=== PATIENT | male | born 1985 | race Caucasian/White ===

== ENCOUNTER 2024-02-04 08:18 | Emergency (ER) | payer BC ==
[2024-02-04] MEDS ORDERED: dexAMETHasone 10 MG/ML VIAL ONE (08:57)
[2024-02-04] MEDS ORDERED: SMZ./TMP. 800/160 MG TABLET ONE (08:57)
--- NOTE | 2024-02-04 09:11 | ER ---
Nurse's Notes [facility] Name: Daniele Jaimes Age: 38 yrs Sex: Male : 1985 Arrival Date: 02/04/2024 Time: 08:18 Bed 12 Private MD: Diagnosis: Insect bite;Facial cellulitis;Periorbital swelling Presentation: 02/03 08:41 Chief complaint: Patient states: left eyelid swelling and redness today. aa5 08:41 Coronavirus screen: At this time, the client does not indicate any symptoms associated aa5 with coronavirus-19. Ebola Screen: Patient denies travel to an Ebola-affected area in the 21 days before illness onset. Initial Sepsis Screen: Does the patient meet any 2 criteria? HR > 90 bpm. Does the patient have a suspected source of infection? No. Patient's initial sepsis screen is negative. Risk Assessment: Do you want to hurt yourself or someone else? Patient reports no desire to harm self or others. Onset of symptoms was February 04, 2024. 08:41 Method Of Arrival: Ambulatory aa5 08:41 Acuity: JOSELITO 4 aa5 Historical: - Allergies: 08:41 Aspirin; aa5 08:41 PENICILLINS; aa5 - PMHx: 08:41 None; aa5 - PSHx: 08:41 None; aa5 - Immunization history:: Adult Immunizations unknown. - Infectious Disease History:: Denies. - Social history:: Smoking status: Patient reports the use of cigarette tobacco products. Vital Signs: 08:41 BP 148 / 114; Pulse 100; Resp 20 S; Temp 97.8(TE); Pulse Ox 95% on R/A; Weight 127.01 aa5 kg (R); Height 5 ft. 11 in. (R); 09:05 BP 148 / 118; Pulse 103; Resp 18 S; Pulse Ox 95% on R/A; aa5 08:41 Body Mass Index 39.05 (127.01 kg, 180.34 cm) aa5 09:05 PARISH NURSE notified of persistent high blood pressure reading. aa5 ED Course: 08:21 Patient arrived in ED. im 08:24 Kyra Mclean FNP is PHCP. jh7 08:24 Riley Cosme DO is Attending Physician. jh7 08:41 Arm band placed on. aa5 08:43 Triage completed. aa5 08:51 Sophie Castro, RN is Primary Nurse. aa5 Administered Medications: 09:04 Drug: Trimethoprim-Sulfamethoxazole PO (160 mg-800 mg (DS) 1 tablet PO once Route: PO; aa5 09:05 Drug: Dexamethasone IM 10 mg IM once Route: IM; Site: left deltoid; aa5 Outcome: 09:10 Discharge ordered by . [facility] er 09:29 Patient left the ED. aa5 Signatures: Sophie Castro RN RN 5 Kyra Mclean, RUG BACKING STENCILER RUG BACKING STENCILER [facility] er Kristin Washington im
--- NOTE | 2024-02-04 09:11 | EDPHYS ---
Physician Documentation [facility] Name: Daniele Jaimes Age: 38 yrs Sex: Male : 1985 Arrival Date: 02/04/2024 Time: 08:18 Bed 12 Private MD: ED Physician Riley Cosme HPI: 02/03 08:41 This 38 yrs old Male presents to ER via Ambulatory with complaints of Eye Swelling. [facility] 08:41 38-year-old male with no past medical history presents to the ER of an insect bite to [facility] his left upper eyelid and left jaw starting yesterday. He reports that they appeared like small insect bites and by this morning there was significantly more swelling. He denies fever, shortness of breath, facial tingling, dysphagia, chest pain, nausea, and vomiting. He reports that the affected areas are itchy but also tender.. Historical: - Allergies: 08:41 Aspirin; aa5 08:41 PENICILLINS; aa5 - PMHx: 08:41 None; aa5 - PSHx: 08:41 None; aa5 - Immunization history:: Adult Immunizations unknown. - Infectious Disease History:: Denies. - Social history:: Smoking status: Patient reports the use of cigarette tobacco products. ROS: 08:41 Constitutional: Per HPI [facility] 08:41 Eyes: Positive for swelling, of the left upper eyelid and L jaw, Exam: 08:41 Constitutional: This is a well developed, well nourished patient who is awake, alert, [facility] and in no acute distress. Eyes: Pupils equal round and reactive to light, extra-ocular motions intact. Lids and lashes normal. Conjunctiva and sclera are non-icteric and not injected. Cornea within normal limits. Periorbital areas with no swelling, redness, or edema. ENT: Nares patent. No nasal discharge, no septal abnormalities noted. Tympanic membranes are normal and external auditory canals are clear. Oropharynx with no redness, swelling, or masses, exudates, or evidence of obstruction, uvula midline. Mucous membranes moist. Neck: Trachea midline, no thyromegaly or masses palpated, and no cervical lymphadenopathy. Supple, full range of motion without nuchal rigidity, or vertebral point tenderness. No Meningismus. Cardiovascular: Regular rate and rhythm with a normal S1 and S2. No gallops, murmurs, or rubs. Normal PMI, no JVD. No pulse deficits. Respiratory: Lungs have equal breath sounds bilaterally, clear to auscultation and percussion. No rales, rhonchi or wheezes noted. No increased work of breathing, no retractions or nasal flaring. Abdomen/GI: Soft, non-tender, with normal bowel sounds. No distension or tympany. No guarding or rebound. No evidence of tenderness throughout. Back: No spinal tenderness. No costovertebral tenderness. Full range of motion. MS/ Extremity: Pulses equal, no cyanosis. Neurovascular intact. Full, normal range of motion. Neuro: Awake and alert, GCS 15, oriented to person, place, time, and situation. Motor strength 5/5 in all extremities. Sensory grossly intact. Normal gait. 08:41 Eyes: Periorbital structures: erythema, that is mild, on the left supraorbital ridge, swelling, that is moderate, on the left supraorbital ridge and left upper eyelid, Pupils: equal, round, and reactive to light and accomodation, Extraocular movements: no acute changes, Conjunctiva: normal, Corneas: are normal, Sclera: no appreciated abnormality, Anterior chamber: normal, Lids and lashes: appear normal, 08:41 Skin: Swelling, tenderness to palpation, and scabbed lesion present near the left tonsillar lymph node. No cellulitis, induration, or fluctuance noted.. Vital Signs: 08:41 BP 148 / 114; Pulse 100; Resp 20 S; Temp 97.8(TE); Pulse Ox 95% on R/A; Weight 127.01 aa5 kg (R); Height 5 ft. 11 in. (R); 09:05 BP 148 / 118; Pulse 103; Resp 18 S; Pulse Ox 95% on R/A; aa5 08:41 Body Mass Index 39.05 (127.01 kg, 180.34 cm) aa5 09:05 ECONOMIC MANAGER notified of persistent high blood pressure reading. aa5 MDM: 08:24 Patient medically screened. 7 09:30 Differential diagnosis: Allergic reaction, insect bite, cellulitis, abscess. Data [facility] reviewed: vital signs, nurses notes. I considered the following discharge prescriptions or medication management in the emergency department Medications were administered in the Emergency Department. See MAR. Counseling: I had a detailed discussion with the patient and/or guardian regarding the historical points, exam findings, and any diagnostic results supporting the discharge/admit diagnosis, the presence of at least one elevated blood pressure reading (>120/80) during this emergency department visit, to return to the emergency department if symptoms worsen or persist or if there are any questions or concerns that arise at home. Response to treatment: the patient's symptoms have mildly improved after treatment. Special discussion: Advised the patient to follow-up with his PCP regarding elevated blood pressure. Also advised warm compresses to the affected area and to take medication as directed. If the redness spreads, swelling worsens, or fever develops, return to the ER for further eval.. Administered Medications: 09:04 Drug: Trimethoprim-Sulfamethoxazole PO (160 mg-800 mg (DS) 1 tablet PO once Route: PO; aa5 09:05 Drug: Dexamethasone IM 10 mg IM once Route: IM; Site: left deltoid; aa5 Disposition: 17:28 I was immediately available on-site in the Emergency Department for consultation in the [facility] [place] the patient. Disposition Summary: 02/04/24 09:10 Discharge Ordered Notes: Location: Home [facility] Problem: new [facility] Symptoms: have improved [facility] Condition: Stable [facility] Diagnosis - Insect bite 7 - Facial cellulitis 7 - Periorbital swelling [facility] Followup: [facility] - With: Private Physician - When: 2 - 3 days - Reason: Recheck today's complaints Discharge Instructions: - Discharge Summary Sheet aa5 - Insect Bite, Adult jh7 - Cellulitis, Adult 7 Forms: - Work release form aa5 - Medication Reconciliation Form [facility] - Thank You Letter [facility] - Antibiotic Education [facility] - Patient Portal Instructions [facility] - Leadership Thank You Letter [facility] Prescriptions: - Hydroxyzine HCl 25 mg Oral Tablet - take 1 tablet ORAL route every 6 hours As needed; 30 tablet; Refills: 0, 7 Product Selection Permitted - Medrol (Cristian) 4 mg Oral Tablets, Dose Pack - take 1 tablet ORAL route as directed - follow package instructions; 1 packet; jh7 Refills: 0, Product Selection Permitted - Bactrim DS 800-160 mg Oral Tablet - take 1 tablet ORAL route every 12 hours for 7 days; 14 tablet; Refills: 0, [facility] Product Selection Permitted Signatures: Sophie Castro RN RN aa5 Riley Cosme, DO ALCARAZ ms3 Kyra Mclean, REGRINDER REGRINDER jh7
[2024-02-04 09:57] VITALS: BP 148/118; TEMP 97.8; O2SAT 95
== END 2024-02-04 09:29 | disposition home or self-care (01) ==
LOC: ER 08:18
DX: L03.211 Cellulitis of face (principal); R22.9 Localized swelling, mass and lump, unspecified; W57.XXXA Bitten or stung by nonvenomous insect and other nonvenomous arthropods, initial encounter; Z72.0 Tobacco use; Z88.0 Allergy status to penicillin; Z88.6 Allergy status to analgesic agent
CPT/HCPCS: 96372; 99284; J1100